=== PATIENT | male | born 1955 | race African-American/Black ===

== ENCOUNTER 2020-05-02 11:39 | Inpatient (IN) | payer OTHER ==
[2020-04-29 08:40] VITALS: BMI 24.0
[~2020-05-02 11:39] MED LIST: BUPIVICAINE 0.25%/MORPH PF/KETOROLAC - 51ML DISP.SYRINGE IA ONE; VANCOMYCIN 1,000 MG VIAL (RESTRICTED TO ID ONLY) IVPB ONE
[2020-05-02] MEDS ORDERED: BUPIVACAINE HCL/PF 0.5% (5 MG/ML) 30 ML VIAL IJ ONE (14:42)
[2020-05-02] MEDS ORDERED: MIDAZOLAM HCL 2 MG/2 ML SINGLE DOSE VIAL ONE ×4 (14:42→16:50)
[2020-05-02] MEDS ORDERED: DEXAMETHASONE SOD PHOSPHATE/PF 10 MG/ML SDV ONE (14:42)
[2020-05-02] MEDS ORDERED: BUPIVACAINE HCL/PF 0.5% (5MG/ML) 10 ML VIAL ONE (15:06)
[2020-05-02] MEDS ORDERED: VANCOMYCIN 1,000 MG VIAL (RESTRICTED TO ID ONLY) ONE (15:27)
[2020-05-02] MEDS ORDERED: TRANEXAMIC ACID 1000 MG/10 ML VIAL ONE ×2 (15:38→17:55)
[2020-05-02] MEDS ORDERED: ceFAZolin SODIUM 1 GM VIAL ONE (15:38)
[2020-05-02] MEDS ORDERED: PROPOFOL 20 ML ONE ×7 (15:40→15:58)
[2020-05-02] MEDS ORDERED: BUPIVICAINE 0.25%/MORPH PF/KETOROLAC - 51ML DISP.SYRINGE IA ONE ×2 (16:28→17:58)
[2020-05-02] MEDS ORDERED: VANCOMYCIN 1,000 MG VIAL (RESTRICTED TO ID ONLY) IVPB ONE (17:54)
[2020-05-02] MEDS ORDERED: ACETAMINOPHEN 1000 MG/100 ML VIAL (NON FORMULARY) IVPB ONE (18:01)
[2020-05-02] MEDS ORDERED: oxyCODONE HCL 5 MG TABLET PO PRN (18:01)
[2020-05-02] MEDS ORDERED: traMADol HCL 50 MG TABLET PO PRN (18:01)
[2020-05-02] MEDS ORDERED: diazePAM 5 MG TABLET PO PRN (18:03)
[2020-05-02] MEDS ORDERED: HYDROmorphone HCl 2 MG/ML VIAL IVPUSH PRN (18:07)
[2020-05-02] MEDS ORDERED: LACTATED RINGERS SOLUTION 1,000 ML IV SCH ×2 (18:15→19:15)
[2020-05-02] MEDS ORDERED: ACETAMINOPHEN INJECTION 100 ML IVPB ONE ×2 (18:24→18:28)
[2020-05-02] MEDS ORDERED: HYDROmorphone HCl 2 MG/ML VIAL ONE (18:27)
[2020-05-02] MEDS ORDERED: SUCCINYLCHOLINE CHLORIDE 200 MG/10 ML SYRINGE ONE (18:36)
[2020-05-02] MEDS ORDERED: ONDANSETRON 4 MG/2 ML VIAL IVPUSH PRN (19:05)
[2020-05-02] MEDS ORDERED: MAG HYDROX/AL HYDROX/SIMETH 30 ML UNIT-DOSE CUP PO PRN (19:05)
[2020-05-02 20:12] LABS: HEMATOCRIT 36.4 % (35.4-49); MCH 33.5 pg (25.7-33.7); MCHC 33.1 g/dl (32.0-35.9); MEAN CELL VOLUME 101.2 fl (80-96); MEAN PLT VOLUME 8.6 fl (7.5-11.1); PLATELET COUNT 164 K/MM3 (134-434); RBC 3.59 M/mm3 (4.00-5.60); RDW 11.5 % (11.9-15.9); WHITE BLOOD COUNT 9.4 K/mm3 (4.0-10.8)
[2020-05-02 20:54] LABS: PLATELET ESTIMATE ADEQUATE
[2020-05-02] MEDS: GABAPENTIN 300 MG CAPSULE PO SCH (21:39)
[2020-05-02] MEDS: SENNOSIDES/DOCUSATE COMBO (SENNA PLUS) TABLET (UD) PO SCH (21:40)
[2020-05-02] MEDS: oxyCODONE HCL 10 MG SUSTAINED ACTING TABLET PO SCH (21:40)
[2020-05-02] MEDS: BUPRENORPHINE/NALOXONE 8 MG/2 MG FILM PACKET SL SCH (22:18)
[2020-05-02] MEDS: CEFAZOLIN 2 GM/D5W 2 GM/50 ML ML IVPB SCH (22:19)
[2020-05-03] MEDS: BUPRENORPHINE/NALOXONE 8 MG/2 MG FILM PACKET SL SCH ×3 (06:40→21:32)
[2020-05-03] MEDS: CEFAZOLIN 2 GM/D5W 2 GM/50 ML ML IVPB SCH ×2 (06:40→14:12)
[2020-05-03 08:28] LABS: CALCIUM 8.8 mg/dl (8.5-10); CREATININE 0.9 mg/dl (0.55-1.3); MAGNESIUM 1.8 mg/dL (1.8-2.4); POTASSIUM 4.4 mmol/L (3.5-5.1)
[2020-05-03 08:33] LABS: HEMATOCRIT 35.6 % (35.4-49); HEMOGLOBIN 11.9 GM/dl (11.7-16.9); MCH 34.4 pg (25.7-33.7); MCHC 33.4 g/dl (32.0-35.9); MEAN CELL VOLUME 102.9 fl (80-96); MEAN PLT VOLUME 9.6 fl (7.5-11.1); PLATELET COUNT 153 K/MM3 (134-434); RBC 3.46 M/mm3 (4.00-5.60); RDW 11.4 % (11.9-15.9); WHITE BLOOD COUNT 9.5 K/mm3 (4.0-10.8)
[2020-05-03] MEDS: GABAPENTIN 300 MG CAPSULE PO SCH ×2 (09:14→21:33)
[2020-05-03] MEDS: MULTIVITAMINS (DAILY MVI) TABLET (FP) PO SCH (09:14)
[2020-05-03] MEDS: PANTOPRAZOLE 40 MG TABLET PO SCH ×2 (09:14→21:33)
[2020-05-03] MEDS: ASPIRIN 325 MG ENTERIC COATED TABLET (FP) PO SCH ×2 (09:14→21:32)
[2020-05-03] MEDS: SENNOSIDES/DOCUSATE COMBO (SENNA PLUS) TABLET (UD) PO SCH ×2 (09:15→21:32)
[2020-05-03] MEDS: oxyCODONE HCL 10 MG SUSTAINED ACTING TABLET PO SCH ×2 (09:16→21:33)
[2020-05-03] MEDS: TIOTROPIUM BROMIDE 2.5 MCG (SPIRIVA) RESPIMAT INHALER IH SCH (09:19)
[2020-05-03] MEDS ORDERED: PANTOPRAZOLE 40 MG TABLET PO SCH (10:00)
[2020-05-03] MEDS: oxyCODONE HCL 5 MG TABLET PO PRN (17:55)
[2020-05-04] MEDS: BUPRENORPHINE/NALOXONE 8 MG/2 MG FILM PACKET SL SCH ×3 (06:17→21:32)
[2020-05-04 08:17] LABS: HEMATOCRIT 29.9 % (35.4-49); MCH 34.4 pg (25.7-33.7); MCHC 33.5 g/dl (32.0-35.9); MEAN CELL VOLUME 102.5 fl (80-96); MEAN PLT VOLUME 8.8 fl (7.5-11.1); PLATELET COUNT 134 K/MM3 (134-434); RBC 2.92 M/mm3 (4.00-5.60); RDW 11.7 % (11.9-15.9)
[2020-05-04] MEDS: SENNOSIDES/DOCUSATE COMBO (SENNA PLUS) TABLET (UD) PO SCH ×2 (09:30→21:32)
[2020-05-04] MEDS: GABAPENTIN 300 MG CAPSULE PO SCH ×2 (09:32→21:33)
[2020-05-04] MEDS: ASPIRIN 325 MG ENTERIC COATED TABLET (FP) PO SCH ×2 (09:32→21:32)
[2020-05-04] MEDS: PANTOPRAZOLE 40 MG TABLET PO SCH ×2 (09:32→21:34)
[2020-05-04] MEDS: MULTIVITAMINS (DAILY MVI) TABLET (FP) PO SCH (09:32)
[2020-05-04] MEDS: oxyCODONE HCL 10 MG SUSTAINED ACTING TABLET PO SCH ×2 (09:32→21:33)
[2020-05-04] MEDS: TIOTROPIUM BROMIDE 2.5 MCG (SPIRIVA) RESPIMAT INHALER IH SCH (09:33)
[2020-05-04] MEDS: oxyCODONE HCL 5 MG TABLET PO PRN (13:16)
[2020-05-05] MEDS: oxyCODONE HCL 5 MG TABLET PO PRN (01:51)
[2020-05-05] MEDS: BUPRENORPHINE/NALOXONE 8 MG/2 MG FILM PACKET SL SCH (06:57)
[2020-05-05] MEDS: SENNOSIDES/DOCUSATE COMBO (SENNA PLUS) TABLET (UD) PO SCH (09:29)
[2020-05-05] MEDS: MULTIVITAMINS (DAILY MVI) TABLET (FP) PO SCH (09:29)
[2020-05-05] MEDS: oxyCODONE HCL 10 MG SUSTAINED ACTING TABLET PO SCH (09:30)
[2020-05-05] MEDS: GABAPENTIN 300 MG CAPSULE PO SCH (09:30)
[2020-05-05] MEDS: ASPIRIN 325 MG ENTERIC COATED TABLET (FP) PO SCH (09:30)
[2020-05-05] MEDS: PANTOPRAZOLE 40 MG TABLET PO SCH (09:30)
[2020-05-05] MEDS: TIOTROPIUM BROMIDE 2.5 MCG (SPIRIVA) RESPIMAT INHALER IH SCH (09:31)
[2020-05-05 13:39] VITALS: BP 102/60; PULSE 63; TEMP 97.8
== END 2020-05-05 13:34 | disposition home or self-care (01) | DRG 301 ==
LOC: FM/S 11:39 → MERGE 13:00 → FM/S 19:50
PROVIDERS: ADMIT Orthopaedic Surgery Sports Medicine; ATTEND Nurse Practitioner Acute Care
PROC: 8E0W0CZ Robotic Assisted Procedure of Trunk Region, Open Approach (ICD-10-PCS; 2020-05-02)
PROC: 0SR90JZ Replacement of Right Hip Joint with Synthetic Substitute, Open Approach (ICD-10-PCS; principal; 2020-05-02 16:16)
DX: M16.11 Unilateral primary osteoarthritis, right hip (principal); D64.9 Anemia, unspecified; E23.0 Hypopituitarism; F19.10 Other psychoactive substance abuse, uncomplicated; F11.20 Opioid dependence, uncomplicated; Z87.11 Personal history of peptic ulcer disease
CPT/HCPCS: 36415; 73502-TC-RT-FY; 80048; 83735; 85025; 85027; 88304-TC; 88311-TC; 94760; 97010-GP; 97116-GP; 97163-GP; J0131

== ENCOUNTER 2023-09-23 12:53 | Observation (INO) | payer OTHER ==
[2023-09-23 13:11] VITALS: BMI 29.5
[2023-09-23] MEDS ORDERED: BUPRENORPHINE/NALOXONE 8 MG/2 MG FILM PACKET ONE (14:21)
[2023-09-23] MEDS: BUPRENORPHINE/NALOXONE 8 MG/2 MG FILM PACKET SL ONE (14:26)
[2023-09-23 15:16] LABS: URINE APPEARANCE Error; URINE BILIRUBIN NEGATIVE (NEGATIVE); URINE COLOR YELLOW; URINE GLUCOSE (UA) NEGATIVE (NEGATIVE); URINE KETONE NEGATIVE (NEGATIVE); URINE LEUK ESTERASE NEGATIVE (NEGATIVE); URINE NITRITE NEGATIVE (NEGATIVE); URINE PROTEIN NEGATIVE (NEGATIVE)
[2023-09-23 15:33] LABS: BASO % 0.3 % (0-2.0); EOS % 0.1 % (0-4.5); HEMATOCRIT 41.9 % (35.4-49); HEMOGLOBIN 14.1 GM/dL (11.7-16.9); LYMPH % 13.2 % (8-40); MCH 34.4 pg (25.7-33.7); MCHC 33.7 g/dl (32.0-35.9); MEAN CELL VOLUME 102.2 fl (80-96); MEAN PLT VOLUME 8.8 fl (7.5-11.1); MONO % 10.5 % (3.8-10.2); NEUT % 75.9 % (42.8-82.8); PLATELET COUNT 155 10^3/uL (134-434); RDW 12.8 % (11.9-15.9)
[2023-09-23 15:39] LABS: INR 1.15 (0.83-1.09); PROTHROMBIN TIME (PATIENT) 12.9 SEC (9.7-13.0)
[2023-09-23 15:42] LABS: ACTIVATED PTT 33.3 SECONDS (25.2-36.5)
[2023-09-23 15:54] LABS: POTASSIUM 4.4 mmol/L (3.5-5.1)
[2023-09-23 15:56] LABS: CALCIUM 9.4 mg/dL (8.5-10.1)
[2023-09-23 15:57] LABS: ALBUMIN 3.7 g/dl (3.4-5.0); BLOOD UREA NITROGEN 12.3 mg/dL (7-18); MAGNESIUM 2.3 mg/dL (1.8-2.4)
[2023-09-23 16:01] LABS: BILIRUBIN,TOTAL 0.7 mg/dL (0.2-1)
[2023-09-23 16:05] LABS: N-TERMINAL BNP 405.7 pg/ml (5-125)
[2023-09-23] MEDS ORDERED: ACETAMINOPHEN INJECTION 100 ML IVPB ONE (16:06)
[2023-09-23] MEDS ORDERED: ASPIRIN 81 MG CHEWABLE TABLETS ONE (16:06)
[2023-09-23] MEDS: ASPIRIN 81 MG CHEWABLE TABLETS PO ONE (16:24)
[2023-09-23] MEDS: ACETAMINOPHEN 1000 MG/100 ML BAG IVPB ONE (16:24)
[2023-09-23] MEDS ORDERED: ALBUTEROL SO4 2.5/IPRATROPIUM 0.5 INH SOL 3 ML VIAL.NEB. NEB ONE (17:21)
[2023-09-23] MEDS: ALBUTEROL SO4 2.5/IPRATROPIUM 0.5 INH SOL 3 ML VIAL.NEB. NEB ONE (17:39)
[2023-09-23 18:08] LABS: POTASSIUM 4.4 mmol/L (3.5-5.1)
[2023-09-23 18:09] LABS: CALCIUM 9.3 mg/dL (8.5-10.1)
[2023-09-23 18:10] LABS: BLOOD UREA NITROGEN 13.3 mg/dL (7-18)
[2023-09-23] MEDS ORDERED: SENNOSIDES 8.6MG TABLET (FP) PO PRN (18:28)
[2023-09-23] MEDS: FUROSEMIDE 40 MG/4 ML INJECTABLE VIAL IVPUSH ONE (19:38)
[2023-09-23] MEDS: BUPRENORPHINE/NALOXONE 8 MG/2 MG FILM PACKET SL SCH (22:21)
[2023-09-24 08:11] LABS: BASO % 0.2 % (0-2.0); EOS % 0.9 % (0-4.5); HEMATOCRIT 39.3 % (35.4-49); HEMOGLOBIN 13.3 GM/dL (11.7-16.9); LYMPH % 33.9 % (8-40); MCH 34.8 pg (25.7-33.7); MCHC 33.9 g/dl (32.0-35.9); MEAN CELL VOLUME 102.6 fl (80-96); MEAN PLT VOLUME 9.1 fl (7.5-11.1); MONO % 15.3 % (3.8-10.2); NEUT % 49.7 % (42.8-82.8); PLATELET COUNT 134 10^3/uL (134-434); RBC 3.83 M/mm3 (4.00-5.60); RDW 12.7 % (11.9-15.9)
[2023-09-24 08:42] LABS: BLOOD UREA NITROGEN 15.6 mg/dL (7-18)
[2023-09-24 08:45] LABS: CREATININE 0.9 mg/dL (0.55-1.3)
[2023-09-24] MEDS: MULTIVITAMINS (DAILY MVI) TABLET (FP) PO SCH (09:05)
[2023-09-24] MEDS: FLUTICASONE/UMECLIDIN/VILANTER(100-62.5-25 TRELEGY ELLIPTA) INAHLER IH SCH (09:05)
[2023-09-24 14:34] LABS: OPIATES, URI NEGATIVE (NEGATIVE); URINE BARBITURATES NEGATIVE (NEGATIVE)
[2023-09-24 14:35] LABS: METHADONE, UR NEGATIVE (NEGATIVE); PHENCYCLIDINE,URINE NEGATIVE (NEGATIVE); URINE BENZODIAZEPINES NEGATIVE (NEGATIVE)
[2023-09-24 14:36] LABS: COCAINE, UR POSITIVE (NEGATIVE); URINE AMPHETAMINES NEGATIVE (NEGATIVE)
[2023-09-24] MEDS: DOCUSATE SODIUM 100 MG CAPSULE (FP) PO PRN (18:23)
[2023-09-25 10:32] VITALS: RESP 20
[2023-09-25] MEDS: ASPIRIN COATED 81 MG TABLET.EC PO SCH (14:00)
[2023-09-25 14:23] VITALS: BP 144/79; PULSE 60; TEMP 97.2
== END 2023-09-25 14:31 | disposition other institution (70) ==
LOC: JER 12:53 → JERBED 16:59 → INTOOBSV 16:59 → J4W 18:13
PROVIDERS: ADMIT Internal Medicine; ATTEND Internal Medicine
PROC: 3E033NZ Introduction of Analgesics, Hypnotics, Sedatives into Peripheral Vein, Percutaneous Approach (ICD-10-PCS; principal; 2023-09-23)
PROC: 3E033GC Introduction of Other Therapeutic Substance into Peripheral Vein, Percutaneous Approach (ICD-10-PCS; 2023-09-23)
PROC: 3E0F7SF Introduction of Other Gas into Respiratory Tract, Via Natural or Artificial Opening (ICD-10-PCS; 2023-09-23)
DX: F11.20 Opioid dependence, uncomplicated (principal); R07.89 Other chest pain; R94.31 Abnormal electrocardiogram [ECG] [EKG]; R79.89 Other specified abnormal findings of blood chemistry; I50.9 Heart failure, unspecified; Z51.81 Encounter for therapeutic drug level monitoring; R60.0 Localized edema; F19.90 Other psychoactive substance use, unspecified, uncomplicated; J44.9 Chronic obstructive pulmonary disease, unspecified
CPT/HCPCS: 36415; 71045-TC-FY; 80048; 80053; 80307; 81003; 83735; 83880; 84484; 85025; 85610; 85730; 93005; 93010; 93306-TC; 93970-TC; 94640; 96374; 96375; 99285-25; G0378; J0131